=== PATIENT | female | born 1940 | race Hispanic/Latino ===

== ENCOUNTER 2017-09-21 19:31 | Emergency (ER) | payer MEDICAID, MEDICARE ==
[2017-09-21 19:46] VITALS: BMI 17.2
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
[2017-09-21] MEDS ORDERED: TDAP Vaccine 0.5 mL Syr IM ONE (20:16)
[2017-09-21] MEDS ORDERED: Ketamine 10 mg/ml Inj (20 ml) IV ONE (22:53)
[2017-09-21] MEDS ORDERED: Cephalexin Susp 250 MG/5 ML PO ONE (23:57)
[2017-09-21 23:58] VITALS: RESP 18; O2SAT 96
[2017-09-22 01:05] VITALS: BP 120/74; PULSE 92; TEMP 98.1
== END 2017-09-21 23:50 | disposition home or self-care (01) ==
LOC: ED 19:31
DX: S61.411A Laceration without foreign body of right hand, initial encounter (principal); W45.8XXA Other foreign body or object entering through skin, initial encounter; Z23 Encounter for immunization; F02.80 Dementia in other diseases classified elsewhere, unspecified severity, without behavioral disturbance, psychotic disturbance, mood disturbance, and anxiety; G30.9 Alzheimer's disease, unspecified; I48.91 Unspecified atrial fibrillation; I50.9 Heart failure, unspecified; E03.9 Hypothyroidism, unspecified; Z87.891 Personal history of nicotine dependence
CPT/HCPCS: 12005; 90471; 90715; 96372; 99284; J1630; J2060